=== PATIENT | male | born 2000 | race Caucasian/White ===

== ENCOUNTER 2022-12-14 16:32 | Emergency (ER) | payer BC ==
[2022-12-14] MEDS ORDERED: Acetaminophen 500 MG TAB ONE (16:48)
[2022-12-14] MEDS ORDERED: HYDROcodone/Acetaminophen 5/325 mg Tablet ONE (17:22)
[2022-12-14] MEDS ORDERED: Ketorolac Tromethamine 30 MG/ML VIAL ONE (17:22)
== END 2022-12-14 18:15 | disposition home or self-care (01) ==
LOC: ERS 16:32
DX: M54.2 Cervicalgia (principal); F17.290 Nicotine dependence, other tobacco product, uncomplicated
CPT/HCPCS: 70450; 72125; J1885